=== PATIENT | female | born 1965 | race Caucasian/White ===

== ENCOUNTER 2017-06-27 16:04 | Emergency (ER) | payer OTHER ==
[~2017-06-27] VITALS: Ht 167.6 cm; Wt 98.4 kg
[~2017-06-27 16:04] MED LIST: COREG; [UNRECOGNIZED DRUG - OTHER] PO
== END 2017-06-28 22:05 | disposition home or self-care (01) ==
LOC: ER 16:04
DX: R07.89 Other chest pain (principal); R00.2 Palpitations
CPT/HCPCS: 93005; 78452; 93017; A9500; J0153; 93306